=== PATIENT | male | born 1975 ===

== ENCOUNTER 2019-11-21 17:53 | Emergency (ER) | payer MEDICAID ==
[~2019-11-21] VITALS: Ht 170.2 cm; Wt 75.0 kg
--- NOTE | 2019-11-21 18:07 | NUR ---
Pt room secured, and pt belongings in 1 bag, pt connected to monitors.
[2019-11-21 18:27] VITALS: BP 167/102
--- NOTE | 2019-11-21 19:38 | NUR ---
Pt attmepting to defecate on floor and urinating on the floor, pt asked to please use the restroom. Pt reporting he has a small bladder and has to go now. Pt denies trauma was bib ems for drug abuse. Pt reproting bugs are crawling over him and has been picking on skin. Pt reports he has used drugs last night but does not know what he used. Pt reports he needs to also shower. Pt has been cleared medically and security asked to dc pt as pt will not respond to rn and continues to show penis to rn saying he needs to pee. This rn is unable to ask pt to leave without pt reporting that he needs to urinate and begins to pick his skin and show RN his penis. Pt being escorted off by security.
--- NOTE | 2019-11-21 19:43 | NUR ---
Patient/Caregiver given discharge instructions and they have confirmed that they understand the instructions. Patient ambulatory with steady gait.
== END 2019-11-21 19:44 | disposition home or self-care (01) ==
LOC: ED 18:45
DX: F11.10 Opioid abuse, uncomplicated (principal); R44.3 Hallucinations, unspecified
CPT/HCPCS: 99283

== ENCOUNTER 2021-03-14 09:02 | Emergency (ER) | payer MEDICAID ==
[~2021-03-14] VITALS: Ht 170.2 cm; Wt 79.5 kg
[2021-03-14] MEDS ORDERED: SODIUM CHLORIDE 0.9% 1,000 ML IV ONE (09:30)
[2021-03-14] MEDS ORDERED: NALOXONE 0.4 MG/ML, 1ML IVPush PRN (09:30)
--- NOTE | 2021-03-14 09:36 | NUR ---
PT STABLE, RESTING IN POSITION OF COMFORT IN [facility] CONTINUOUS SPO2 AND CARDIAC MONITORING IN PLACE. PT REQUESTING THAT I CALL HIS BROTHER, JORGE ALBERTO @ [phone]. ATTEMPTED TO CALL PT'S BROTHER, NO ANSWER, VOICEMAIL LEFT. BEDSIDE REPORT TO ROCKY MENDOZA.
--- NOTE | 2021-03-14 10:56 | NUR ---
pt resting comfortably at this time. cardiac, nibp, and o2 monitoring remains in place. pt is in clear line of site of nursing station and remains agreeable to staying. until dc"d
[2021-03-14 11:18] VITALS: BP 119/73
--- NOTE | 2021-03-14 12:54 | NUR ---
LETHA CONSULT. PT EXPRESSED A WANT TO GO TO REHAB. LETHA CONTACTED [facility] REGARDING ACCEPTANCE ON A VOLUNTARY BASIS. [facility] WILL SEE PT. PT TO BE PLACED IN A CAB AND TAKEN TO [facility] FOR [place]
== END 2021-03-14 13:27 | disposition home or self-care (01) ==
LOC: ED 13:21
DX: T40.1X1A Poisoning by heroin, accidental (unintentional), initial encounter (principal); R00.0 Tachycardia, unspecified; X58.XXXA Exposure to other specified factors, initial encounter
CPT/HCPCS: 93005; 99283